=== PATIENT | male | born 1960 | race Asian ===

== ENCOUNTER 2019-07-31 11:50 | Inpatient (IN) | payer MEDICAID ==
[~2019-07-31] VITALS: Ht 172.7 cm; Wt 50.8 kg
[2019-07-31 11:58] VITALS: Ht 172.7 cm; Wt 50.8 kg
--- NOTE | 2019-07-31 12:07 | NUR ---
AMBULATORY TO BED 9. PT C/O L 4TH TOE PAIN. PT STATES HE WAS WORKING ON HIS CAR 5 DAYS AGO, HE FELL AND INJURED HIS L 4TH TOE. PT STATES HE HAS BEEN CLEANING HIS TOE WITH PEROXIDE, CAME TO ER ER TODAY BECAUSE "IT SMELLS". ON ARRIVAL, L FOOT RED AND SWOLLEN, L 4TH TOE BLACK WITH OPEN WOUND ON TOP, WITH THICK YELLOW SLOUGH AND DISCHARGE, STRONG ODOR NOTED. RED STREAK ALSO NOTED GOING UP TO L LEG.
--- NOTE | 2019-07-31 12:14 | NUR ---
XRAY AT BEDSIDE.
[2019-07-31 12:55] LABS: BASOPHIL % 0.5 % (0-2); PLATELET COUNT 315 x10^3mcL (130-400); RED CELL DISTRIBUTION WIDTH 13.1 % (11.5-14.5)
[2019-07-31 13:28] LABS: CALCIUM 8.2 mg/dL (8.5-10.1); CARBON DIOXIDE 27.2 mmol/L (21-32); CHLORIDE SERUM 96 mmol/L (98-107); CREATININE SERUM 1.3 mg/dL (0.7-1.3); GFR1 60 mL/min; GLUCOSE SERUM 444 mg/dL (74-106); SODIUM SERUM 133 mmol/L (136-145)
[2019-07-31 13:33] LABS: ALBUMIN 3.5 g/dL (3.4-5.0); ALKALINE PHOSPHATASE 178 U/L (46-116); ALT/SGPT 20 U/L (16-63); AST/SGOT 16 U/L (15-37); BILIRUBIN TOTAL 0.3 mg/dL (0.20-1.00)
[2019-07-31 13:34] LABS: TOTAL PROTEIN, SERUM 8.3 g/dL (6.4-8.2)
--- NOTE | 2019-07-31 14:24 | NUR ---
2ND BOLUS OF NS INFUSING AT THIS TIME. PT AWAKW ALERT, NO SIGNS OF ACUTE DISTRESS.
--- NOTE | 2019-07-31 15:32 | NUR ---
2ND NS BOLUS INFUSED. BP 161/93
--- NOTE | 2019-07-31 15:50 | NUR ---
PT ADMITTED TO MS, REPORT GIVEN TO PHI.
[2019-07-31 16:28] LABS: FREE T4 1.08 ng/dL (0.76-1.46); FREE THYROXINE INDEX 2.7 ug/dL (1.4-4.5); T4(THYROXINE) 7.3 ug/dL (4.7-13.3)
[2019-07-31 16:29] VITALS: BP 182/102
[2019-07-31 16:29] LABS: T3 TOTAL 0.71 ng/mL
--- NOTE | 2019-07-31 16:43 | NUR ---
RECEIVED PT FROM ER, PT ADMIT FOR NEW ONSET DM, LEFT FOOT CELLULITIS, PT IS A/O X4, VERBAL RESPONSIVE, ABLE TO TELL WHAT HE NEEDS, LUNG SOUND CLEAR BILATERAL, NO COUGH, NO SOB, PT DENY ANY CHEST PAIN OR DISCOMFORT, BOWEL SOUND PRESENT ALL 4 QUADRANTS, NO DISTENTION, NO TENDER. PEDAL PULSE PRESENT BOTH FEET, LEFT THIRD TOE NECROTIC TISSUE SURROUND WITH ERYTHEMA. YELLOW DRAINAGE AT TOP TO THIRD TOE, ALSO THERE IS A SWELLING AND ERYTHEMA AT LEFT OUT LATERAL BIG TOE. DUE TO GOUT, IV AT LEFT AC, NO LEAKING, NO INFILTRATION. ALL ADLS ASSIST, ALL NEED MET, CALL LIGHT IN REACH, WILL CONTINUET TO MONITOR.
--- NOTE | 2019-07-31 16:51 | NUR ---
ASSUMED REPORT AND CARE FORM RESOURCE RN VINAYAK, PT IN BED, IN NO ACUTE DISTRESS, WOUDN CARE DONE, TOLERATED WELL, REPORTED NO PAIN AT THIS TIME, EKG DONE AT BEDSIDE, EDUCATION R/T DIABETIC, DIET AND HYPERTENSION GIVEN PT, VERBALLY UNDERSTANDING, NO FURTHER CONCERNS NEEDED WHEN ASKED, MEDSURG, ALL NEEDS ADDRESSED AT THIS TIME, SAFETY PROTOCOL FOLLOWED, CONTINUE TO MONITOR
--- NOTE | 2019-07-31 17:32 | NUR ---
PT HAD US TO (L) TOE AND BLOOD DRAW AT BEDSIDE, IN NO ACUTE DISTRESS, CONTINUE TO MONITOR
[2019-07-31 17:45] LABS: CHOLESTEROL 157 mg/dL (<200); MAGNESIUM 2.2 mg/dL (1.8-2.4); PHOSPHOROUS 3.1 mg/dL (2.5-4.9)
[2019-07-31 17:50] LABS: CHOLESTEROL/HDL RATIO 4.8; HDL CHOLESTEROL 33 mg/dL (40-60); TRIGLYCERIDES 469 mg/dL (<150)
--- NOTE | 2019-07-31 19:05 | NUR ---
REPORT RECEIVED FROM DAY SHIFT RN. PATIENT WAS SEEN AND IS RESTINF COMFORTABLY IN BED. NO DISTRESS NOTED. BREATHING EVEN AND UNLABORED ON ROOM AIR. NO SOB OR RESP DISTRESS NOTED. IV TO THE LAC. SALINE LOCK. PATENT AND INTACT. NO REDNESS OR SWELLING NOTED. DENIES CHEST PAIN/PRESSURE. C/O 6/10 PAIN IN LEFT TOE. WILL MEDICATE. LEFT 4TH NECROTIC TOE WITH GAUZE IN PLACE. DEYANIRA. FOUL ODOR NOTED. COMFORT AND SAFETY MEASURES IN PLACE. BED IS LOCKED AND IN THE LOWEST POSITION. SIDE RAILS UP X2. CALL LIGHT IS WITHIN REACH. WILL CONTINUE TO MONITOR.
--- NOTE | 2019-07-31 19:16 | NUR ---
EVENING SITTER, DAY, IN TO SEE PATIENT AND EXPLAINING SURGICAL PROCEDURE. ALSO CLEANING AND DRESSING WOUND. EDUCATED PATIENT ON NPO STATUS AFTER MIDNIGHT DUE TO SURGERY TOMORROW. PATIENT VERBALIZED UNDERSTANDING. PRN NORCO GIVEN FOR LEFT 4TH TOE SHARP AND THROBBING PAIN. MEDICATION EDUCATION GIVEN. NO DISTRESS NOTED. BREATHING EVEN. SAFETY MEASURES IN PLACE. CALL LIGHT IS WITHIN REACH. WILL CONTINUE TO MONITOR.
[2019-07-31 21:01] VITALS: BP 157/97
--- NOTE | 2019-07-31 21:46 | NUR ---
BS 367. ADMINISTED 12 UNITS OF REGULAR INSULIN OER DR YI'S ORDERS SINCE PATIENT WILL BE NPO AFTER MIDNIGHT. EDUCATED PATIENT ON SLIDING SCALE, HOW TO CHECK BS, HOW TO ADMINISTER INSULIN, INSULIN EDUCATION, DM EDUCATION, AND S/S OF HYPOGLYCEMIA. PATIENT VERBALIZED UNDERSTANDING AND IS AWARE TO REPORT S/S OF HYPOGLYCEMIA. DIABETIC EDUCATION PAPERWORK GIVEN. NO DISTRESS NOTED. BREATHING EVEN. SAFETY MEASURES IN PLACE. CALL LIGHT IS WITHIN REACH. WILL CONTINUE TO MONITOR.
--- NOTE | 2019-07-31 22:15 | NUR ---
AND DAUGHTER AT BEDSIDE. C/O 5/10 PAIN IN LEFT FOOT. ADMINISTERED PRN MORPHINE PRESCRIBED. MED EDUCATION GIVEN. NO DISTRESS NOTED. BREATHING EVEN AND UNLABORED ON ROOM AIR. SAFETY MEASURES IN PLACE. CALL LIGHT IS WITHIN REACH. WILL CONTINUE TO MONITOR.
[2019-08-01] VITALS (7 sets, daily range): BP systolic 110–167; BP diastolic 64–92
--- NOTE | 2019-08-01 01:47 | NUR ---
RESTING IN BED WITH EYES CLOSED. NO DISTRESS NOTED. BREATHING EVEN AND UNLABORED ON ROOM AIR. NO SOB OR RESP DISTRESS NOTED. IVF INFUSING WELL. PATENT AND INTACT. NO REDNESS OR SWELLING NOTED. SAFETY MEASURES IN PLACE. CALL LIGHT IS WITHIN REACH. WILL CONTINUE TO MONITOR.
--- NOTE | 2019-08-01 03:47 | NUR ---
RESTING IN BED WITH EEYS CLOSED ON RIGHT SIDE. NO DISTRESS NOTED. BREATHING EVEN AND UNLABORED ON ROOM AIR. NO SOB OR S/S OF PAIN NOTED. IVF INFUSING WELL. PATENT AND INTACT. LEFT FOOT DRESSING IN PLACE, CDI. SAFETY MEASURES IN PLACE. CALL LIGHT IS WITHIN REACH. WILL CONTINUE TO MONITOR.
--- NOTE | 2019-08-01 04:58 | NUR ---
PAGE GATED DR ROJASED ABOUT ORDERS FOR CHG WIPES. AWAITING ORDERS.
--- NOTE | 2019-08-01 06:02 | NUR ---
BS 174. NPO. DR YI NOTIFIED. PER HIM, NO INSULIN GIVEN AT THIS TIME.
[2019-08-01 06:29] LABS: BASOPHIL % 0.2 % (0-2); PLATELET COUNT 295 x10^3mcL (130-400); RED CELL DISTRIBUTION WIDTH 12.8 % (11.5-14.5)
--- NOTE | 2019-08-01 06:30 | NUR ---
RESTED IN LONG INTERVALS THROUGHOUT THE NIGHT. NO ACUTE CHANGES NOTED. BREATHING EVEN AND UNLABORED ON ROOM AIR. DENIES PAIN AT THIS TIME. DENIES CHEST PAIN. IV TO THE LAC INFUSING WELL. PATENT AND INTACT. DRESSING TO LEFT FOOT, CDI. MINIMAL DRAINAGE NOTED TO DRESSING. NPO. COMFORT AND SAFETY MEASURES IN PLACE. CALL LIGHT IS WITHIN REACH. WILL ENDORSE CARE TO ONCOMING RN.
[2019-08-01 06:43] LABS: CALCIUM 7.9 mg/dL (8.5-10.1); CARBON DIOXIDE 27.2 mmol/L (21-32); CHLORIDE SERUM 105 mmol/L (98-107); GFR1 > 60 mL/min; GLUCOSE SERUM 167 mg/dL (74-106); PHOSPHOROUS 3.2 mg/dL (2.5-4.9); POTASSIUM SERUM 3.7 mmol/L (3.5-5.1); SODIUM SERUM 142 mmol/L (136-145)
--- NOTE | 2019-08-01 07:57 | NUR ---
RECEIVED PT LYING IN BED A/A. RESPIRATIONS EQUAL/ UNLABORED ON RA. BP 167/92. DR. COX PAGED. PT IN NO APPARENT DISTRESS. BED IN LOW POSITION, CALL LIGHT IN REACH. WILL CONTINUE TO MONITOR
[2019-08-01 09:31] LABS: UA SPECIFIC GRAVITY 1.015 (1.005-1.035); microscopic required? YES; urine erythrocyte NEGATIVE (NEGATIVE)
[2019-08-01 09:45] LABS: AMPHETAMINE QUAL UR NONE DETECTED (See below)
--- NOTE | 2019-08-01 12:27 | NUR ---
PT WENT DOWN TO OR. NO ACUTE DISTRESS. VSS
--- NOTE | 2019-08-01 13:47 | NUR ---
Discount pharmacy card and list to low cost medical clinics given to patient by Dorota.
--- NOTE | 2019-08-01 14:30 | NUR ---
PT RETURNED TO FLOOR FROM OR, A/A/ SLIGHTLY DROWSY. VSS RESPIRATIONS EQUAL/ UNLABORED ON RA. NO C/O PAIN AT THIS TIME. L. FOOT WRAPPED WITH SUGICAL DRESSING AND ARABELLA WRAP. CDI. LLE ELEVATED WITH PILLOW. PATIENT REPORTS SENSATION/ ABLE TO WIGGLE TOES OF LLE. ICE PACK APPLIED UNDER L. KNEE ORDERED. POST OP SHOE GIVEN FOR L. FOOT. IV INFUSING. NO REDNESS/ SWELLING AT IV SITE. BED IN LOW POSITION, CALL LIGHT IN REACH. WILL CONTINUE TO MONITOR
--- NOTE | 2019-08-01 18:52 | NUR ---
PT LYING IN BED A/A. RESPIRATIONS EQUAL/UNLABORED ON RA. IVF RUNNING AT 70ML/HR. NO REDNESS/SWELLING AT IV SITE. PT L.FOOT ELEVATED ON PILLOWS. L.FOOT DRESSING CDI. NO C/O PAIN AT THIS TIME. BED IN LOW POSITION, CALL LIGHT IN REACH. WILL ENDORSE TO ON COMING NURSE
--- NOTE | 2019-08-01 20:36 | NUR ---
PT CURRENTLY RESTING IN BED, NO ACUTE DISTRESS. A/O X4. NO TELE, MED/SURG. DENIES CHEST PAIN. PULSES PALPABLE IN ALL EXTREMITIES, TRACE LLE EDEMA NOTED. LUNG SOUNDS CTA BILATERALLY, DENIES SOB. BOWEL SOUNDS ACTIVE, LAST BM 08/01/19. VOIDING WELL. AMBULATORY. S/P LEFT 4TH TOE AMPUTATION, DRESSING CDI. C/O LEFT FOOT PAIN 04/21, WILL MEDICATE PER EMAR. IV PATENT AND INTACT. BED IN LOWEST POSITION, SIDE RAILS UP X2, CALL LIGHT WITHIN REACH. WILL CONTINUE TO MONITOR.
--- NOTE | 2019-08-02 00:38 | NUR ---
PT CURRENTLY RESTING IN BED, NO ACUTE DISTRESS. WILL CONTINUE TO MONITOR.
[2019-08-02 04:26] VITALS: BP 127/81
--- NOTE | 2019-08-02 06:33 | NUR ---
PT SLEPT PERIODICALLY THROUGHOUT NIGHT, NO ACUTE DISTRESS. ALL NEEDS MET AND ATTENDED TO. NO SIGNIFICANT CHANGES. IV PATENT AND INTACT. MEDICATED PAIN PER EMAR. ICE PACK PLACED UNDER LLE. BED IN LOWEST POSITION, SIDE RAILS UP X2, CALL LIGHT WITHIN REACH. WILL ENDORSE CARE TO ONCOMING NURSE.
[2019-08-02 06:47] LABS: BASOPHIL % 0.1 % (0-2); PLATELET COUNT 295 x10^3mcL (130-400); RED CELL DISTRIBUTION WIDTH 13.2 % (11.5-14.5)
[2019-08-02 07:00] LABS: CALCIUM 7.8 mg/dL (8.5-10.1); CARBON DIOXIDE 24.1 mmol/L (21-32); CHLORIDE SERUM 103 mmol/L (98-107); CREATININE SERUM 1.1 mg/dL (0.7-1.3); GFR1 > 60 mL/min; GLUCOSE SERUM 218 mg/dL (74-106); MAGNESIUM 1.8 mg/dL (1.8-2.4); PHOSPHOROUS 2.9 mg/dL (2.5-4.9); POTASSIUM SERUM 4.5 mmol/L (3.5-5.1); SODIUM SERUM 139 mmol/L (136-145)
--- NOTE | 2019-08-02 07:48 | NUR ---
RECEIVED PT LYING IN BED A/A. RESPIRATIONS EQUAL/ UNLABORED ON RA. IVF RUNNING AT 70ML/HR. PT C/O L. FOOT PAIN 02/19, TOLERABLE AT THIS TIME. L. FOOT BANDAGE CDI. CSM TO L. FOOT INTACT. BED IN LOW POSITION, CALL LIGHT IN REACH, WILL CONTINUE TO MONITOR
[2019-08-02 08:32] VITALS: BP 156/92
--- NOTE | 2019-08-02 12:46 | NUR ---
PT SITTING IN BED A/A. RESPIRATIONS EQUAL/ UNLABORED ON RA. NO ACUTE DISTRESS/ C/O PAIN AT THIS TIME. IVF RUNNING AT 70ML/HR. BED IN LOW POSITION, CALL LIGHT IN REACH, WILL CONTINUE TO MONITOR
--- NOTE | 2019-08-02 15:37 | NUR ---
PT LYING IN BED EYES CLOSED, AROUSABLE TO VOICE. BREATHING EQUAL/ UNLABORED ON RA. IVF RUNNING AT 100ML/HR. NO SIGNS OF DISTRESS. BED IN LOW POSITION, CALL LIGHT IN REACH, WILL CONTINUE TO MONITOR.
[2019-08-02 16:47] VITALS: BP 134/80
--- NOTE | 2019-08-02 18:41 | NUR ---
PT SITTING IN BED A/A. RESPIRATIONS EQUAL/ UNLABORED ON RA. IVF RUNNING AT 70ML/HR. NO REDNESS/ SWELLING AT IV SITE. L. FOOT ELEVATED, NEW ICE PACK UNDER L. KNEE, L. FOOT BANDAGE CDI. NO C/O PAIN AT THIS TIME. EDUCATED ON TYPE 2 DIABETES. BED IN LOW POSITION, CALL LIGHT IN REACH. WILL ENDORSE TO ON COMING SHIFT
[2019-08-02 19:27] VITALS: BP 145/87
--- NOTE | 2019-08-02 19:28 | NUR ---
AWAKE AND ALERT, HOB ELEVATED 45 DEG. WATCHING TV. BREATHING EVEN AND UNLABORED ON ROOM AIR. IVF OF NS INFUSING WELL TO IV SITE TO LEFT AC. IV SITE FREE FROM ERYTHEMA OR SWELLING. DRESSING TO LEFT FOOT CDI. CAPILLARY REFILL < 2 SECS.
--- NOTE | 2019-08-02 22:45 | NUR ---
eyes closed, breathing even and unlabored on room air. call light within easy reach. ivf infusing well. left foot elevated on pillows.
[2019-08-03 05:24] VITALS: BP 173/93
--- NOTE | 2019-08-03 06:05 | NUR ---
bp 168/93, pr 81. informed maggy madrid to administer due lisinopril this am
[2019-08-03 06:24] LABS: BASOPHIL % 0.6 % (0-2); PLATELET COUNT 282 x10^3mcL (130-400); RED CELL DISTRIBUTION WIDTH 13.5 % (11.5-14.5)
[2019-08-03 06:59] VITALS: BP 150/87
--- NOTE | 2019-08-03 07:12 | NUR ---
EYES CLOSED, BREATHING EVEN AND UNLABORED. IVF INFUSING WELL. IN NO ACUTE DISTRESS. ENDORSED TO NURSE BRIAN
[2019-08-03 07:14] LABS: CALCIUM 8.5 mg/dL (8.5-10.1); CARBON DIOXIDE 28.5 mmol/L (21-32); CHLORIDE SERUM 105 mmol/L (98-107); GFR1 > 60 mL/min; GLUCOSE SERUM 117 mg/dL (74-106); SODIUM SERUM 142 mmol/L (136-145)
--- NOTE | 2019-08-03 07:29 | NUR ---
PT LYING IN BED EYES CLOSED, AROUSABLE TO VOICE. RESPIRATIONS EQUAL/ UNLABORED ON RA. IVF RUNNING AT 70ML/HR. NO REDNESS SWELLING AT IV SITE. L. FOOT BANDAGE CDI/ L. FOOT ELEVATED. BED IN LOW POSITION, CALL LIGHT IN REACH, WILL CONTINUE TO MONITOR
[2019-08-03 08:05] VITALS: BP 152/90
--- NOTE | 2019-08-03 11:52 | NUR ---
PT LYING IN BED A/A. RESPIRATIONS EQUAL/UNLABORED ON RA. L. FOOT ELEVATED, CSM INTACT, BANDAGE CDI. NO CO PAIN. IVF RUNNING AT 70ML/HR. NO REDNESS/ SWELLING AT IV SITE. BED IN LOW POSITION, CALL LIGHT IN REACH. WILL CONTINUE TO MONITOR
--- NOTE | 2019-08-03 14:08 | NUR ---
Initial Nutrition Assessment: Bridgette Tuan eLv [id number] Dx: new onset DM, left foot cellulitis PMHx: Gout PSHx: None Labs:(08/03) WBC:11..3H, H/H:12.4/37L(07/31) A1c:11.8H Meds: Amaryl, Colace, Glucophage, Humulin, Morphine, [place], NS IV, Tyleno, Vancocin, Zestril, Zofran, Zyloprin Diet: CCHO PO Intake: (08/01) L:100% D:100% (08/02) B"100% (08/03) B:95% Ht:68in, 5'8" Wt:111#, 50.802kg BMI:17kg/m2 (underweight) Bed scale: IBW:154#, 70kg %IBW:72% UBW: 125# 1 year ago Age: 58 y/o male Food Allergies: NKFA Skin:s/p left 4th toe amputation Santiago: 21 Edema: none GI: active bowel sounds Last BM:08/01 Per H&P, pt was admitted with c/o pain on the the left 4th toe. Per progress note 08/02, pt is s/p left 4th toe amputation. During visit, pt was seen laying in bed. RD went over in depth diabetic diet, labs and medications. RD went over CHO sources, portion control, adding fiber and protein when eating CHO to stabalize BG. Pt inquiring on ways to gain weight. RD gave snack examples and supplement choices. RD provided pt wit h handout for diabetes class and encouraged pt to go. Pt verbalized understanding. Problem with: N/V/D/C: No Problems with: Chewing/Swallowing: No Current appetite: good Recent wt change:-14# within the past year %wt change:11.2% wt change (significant) Vitamin/Supplement use: One a Day Men's MVI Special diet at home: Regualr Physical activity:walking/running 30min/day after work and pushups Nutrition education given: Medical Nutrition Therapy: Type 2 diabetes. Food-drug interactions? [place] Education given?yes, can get constipation Estimated Nutritional Needs Based on ideal body weight 70kg due to underweight status Energy: 1750-2100kcal/d (25-30kcal/kg) Protein:70-84g/d (1-1.2g/kg) Fluid: 1750-2100ml/d (1 ml/kcal) or per doctor Nutrition Diagnosis 1. Underweight related to poor appettite as evidenced by BMI:17kg/m2 and 72% of IBW. 2. Altered nutrition related labs related to endocrine dysfunction as evidenced by A1c:11.8. 3. Nutrition related knowledge deficit related to new DM diagnosis and evidenced by pt uable to name CHO sources. Intervention 1. Recommend continue CCHO diet. 2. Recommend pt attend outpatient diabetes class due to newly diagnosed with diabetes. Monitor/Evaluate Goal: PO intake at least 75% of estimated needs Monitor: PO intake, Labs, GI function F/U in 7 days as low risk:08/10
--- NOTE | 2019-08-03 14:14 | NUR ---
1.Recommend continue [facility] diet. 2.Recommend pt attend outpatient diabetes class due to newly diagnosed with diabetes.
--- NOTE | 2019-08-03 16:09 | NUR ---
SPOKE WITH DR. BINGHAM OVER THE PHONE REGARDING PT WOUND CULTURE RESULTS. ALSO CLARIFIED WOUND CARE DRESSING INSTRUCTIONS, PER DR. BINGHAM SHE WILL SEE PT TOMORROW IN AM AND DRESSING CHANGE WILL BE DONE AT F/U APPT
--- NOTE | 2019-08-03 16:40 | NUR ---
PT SITTING IN BED A/A. BREATHING EQUAL/ UNLABORED ON RA. L. FOOT ELEVATED, DRESSING CDI, CSM INTACT. IVF RUNNING AT 70ML/HR. NO REDNESS/ SWELLING AT IV SITE. BED IN LOW POSITION, CALL LIGHT IN REACH, WILL CONTINUE TO MONITOR
--- NOTE | 2019-08-03 17:55 | NUR ---
PAGED DR. GARCIA ABOUT BP. PT NON SYMPTOMATIC
[2019-08-03 17:56] VITALS: BP 163/90
--- NOTE | 2019-08-03 18:30 | NUR ---
PT SITTING IN BED A/A. BREATHING EQUAL UNLABORED ON RA. NO C/O PAIN AT THIS TIME. L. FOOT BANDAGE CDI/ CSM INTACT. IVF RUNNING AT 70 ML/HR. NO REDNESS/SWELLING AT IV SITE. BED IN LOW POSITION, CALL LIGHT IN REACH, FAMILY AT BED SIDE. WILL ENDORSE TO ON COMING NURSE
--- NOTE | 2019-08-03 18:50 | NUR ---
PAGED DR. ELY REGARGING BP
[2019-08-03 19:30] VITALS: BP 194/109
--- NOTE | 2019-08-03 19:49 | NUR ---
AWAKE AND ALERT, ORIENTED TO NAME, PLACE, TIME AND SITUATION. SPEECH CLEAR AND APPROPRIATE. HOB ELEVATED 30 DEG. IVF INFUSING WELL TO LEFT AC, IV SITE FREE FROM ERYTHEMA OR SWELLING. REMINDED TO KEEP LEFT FOOT ELEVATED ON PILLOW. BP 198/109, INFORMED DR. ELY.
[2019-08-03 21:13] VITALS: BP 155/75
--- NOTE | 2019-08-03 22:55 | NUR ---
eyes closed, breathing even and unlabored on room air. call light within easy reach. left foot elevated on pillow
[2019-08-04 05:04] VITALS: BP 158/99
--- NOTE | 2019-08-04 06:31 | NUR ---
EYES CLOSED, BREATHING EVEN AND UNLABORED ON ROOM AIR. NO MOANING OR GRIMACING NOTED. LEFT FOOT ELEVATED ON PILLOW. IVF INFUSING WELL. IV SITE FREE FROM ERYTHEMA OR SWELLING.
--- NOTE | 2019-08-04 07:10 | NUR ---
RECEIVED REPORT FROM NIELS CHENEY, PT IN BED IN NO ACUTE DISTRESS
--- NOTE | 2019-08-04 07:19 | NUR ---
AWAKE AND ALERT, BREATHING EVEN AND UNLABORED. IN NO ACUTE DISTRESS. ENDORSED TO NURSE THI
--- NOTE | 2019-08-04 07:25 | NUR ---
PT IN BED, VERBAL, IN NO ACUTE DISTRESS, ABLE TO MAKE NEEDS KNOWN, CALM AT THIS TIME, PERRLA, NO REDNESS/DRAINAGE, NO FACIAL DROOP/SLURRED SPEECH, RESP EVEN, NO SOB/COUGH, CHEST RISE SYMMETRICALLY, MEDSURG, DENIED CP/QUISPE/PALPITATION, DENIED N/V/D, ABD FLAT AND NON-TENDER TO TOUCH, BS ACTIVE X 4, PALP PULSES, CAP REFILL < 3S, AMBULATORY, NON-WEIGHT BEARING TO LE, CONTINENT, IV PATENT AND INFUSING WELL, DRESSING CDI, SKIN C/D/W, SEE SKIN ASSESSMENT, DENIED PAIN/DISCOMFORT, ALL NEEDS ADDRESSED AT THIS TIME, SAFETY MONITOR, CONTINUE TO MONITOR
[2019-08-04 07:51] LABS: CALCIUM 8.5 mg/dL (8.5-10.1); CARBON DIOXIDE 28.7 mmol/L (21-32); CHLORIDE SERUM 104 mmol/L (98-107); CREATININE SERUM 1.1 mg/dL (0.7-1.3); GFR1 > 60 mL/min; GLUCOSE SERUM 117 mg/dL (74-106); POTASSIUM SERUM 3.4 mmol/L (3.5-5.1); SODIUM SERUM 142 mmol/L (136-145)
[2019-08-04 07:55] LABS: PLATELET COUNT 290 x10^3mcL (130-400); RED CELL DISTRIBUTION WIDTH 13.5 % (11.5-14.5)
[2019-08-04 08:11] VITALS: BP 180/100
--- NOTE | 2019-08-04 08:12 | NUR ---
PT SEEN BY PODIATRIC DR BINGHAM, DRESSIGN CHANGED BY DR BINGHAM, TOLRATED WELL, CONTINUE TO MONITOR
--- NOTE | 2019-08-04 09:55 | NUR ---
AM MEDGIVEN PER EMAR, TAKEN WELL, NO ASE NOTED AT THIS TIME, EDUCATION R/T MED, ASE AND CONDITION GIVEN TO PT, VERBALLY UNDERSANDING, CONTINUE TO MONITOR
[2019-08-04 10:47] VITALS: BP 180/100
--- NOTE | 2019-08-04 11:16 | NUR ---
SEEN BY DR LOPEZ AND BROOKE R/T DC HOME TODAY, WOUND PIC TAKEN AND KEPT IN CHART
[2019-08-04] MEDS ORDERED: ZES20 PO (11:37)
[2019-08-04] MEDS ORDERED: GLU500 PO (11:38)
[2019-08-04] MEDS ORDERED: ALLOPURINOL300 M1 PO (11:38)
[2019-08-04] MEDS ORDERED: GLIMEPIRIDE2 M1 PO (11:38)
[2019-08-04] MEDS ORDERED: BACTRIM DS1 TAB PO (11:39)
[2019-08-04] MEDS ORDERED: AUG500 PO (11:40)
--- NOTE | 2019-08-04 12:01 | NUR ---
PT MADE AWARE OF NEW PRESCRIPTION IN DC PACKAGE, SAID WILL F/U WITH [facility], SON AT BEDSIDE SAID WILL DRIVE PT TO PHARMACY TO P/U MED
--- NOTE | 2019-08-04 12:09 | NUR ---
DC PAPER SIGNED BY PT AND KEPT IN CHART, EDUCATION R/T DM, HTN, MED, ASE, BS CHECK AND MONITOR GIVEN TO PT AND SON AT BEDSIDE, VERBALLY UNDERSTANDING, QUESTIONS ASKED AND ANSWERED, NO FURTHER CONCERNS NEEDED AT THIS TIME, IV REMOVED, IV CATH TIP INTACT, NO ACTIVE BLEEDING NOTED, PT AWAITED FOR SS AND ENFORCEMENT OFFICER TO GIVE MD NOTE FOR HOSPITALIZATION, PT MADE AWARE OF PT RESPONSIBILITY TO F/U WITH PODIATRIC MD APPOINMENT AND PCP [facility], WOUND CARE DRESSING SUPPLY GIVEN TO PT APPROXIMATELY 7 DAYS, ALL NEEDS ADDRESSED AT THIS TIME, PT DC HOME, SON P/U PT.
--- NOTE | 2019-08-04 14:54 | NUR ---
PHYSICAL THERAPY DAILY NOTES CO-SIGN All documentation done by the Larry Operator for 08/04/19 has been reviewed. I agree with the documentation. Reviewed/Co-Signed by: Aby Green PT Documentation Done by: ROCIO KIM PTA
== END 2019-08-04 13:38 | disposition home or self-care (01) | DRG 710 ==
LOC: ED 11:50 → MU 15:17
PROVIDERS: Emergency Medicine; Podiatrist Foot & Ankle Surgery; ADMIT Internal Medicine
PROC: 0Y6W0Z1 Detachment at Left 4th Toe, High, Open Approach (ICD-10-PCS; principal; 2019-08-01 13:00)
DX: A41.9 Sepsis, unspecified organism (principal); N17.0 Acute kidney failure with tubular necrosis; I96 Gangrene, not elsewhere classified; L03.116 Cellulitis of left lower limb; E87.1 Hypo-osmolality and hyponatremia; E11.621 Type 2 diabetes mellitus with foot ulcer; E11.69 Type 2 diabetes mellitus with other specified complication; E11.52 Type 2 diabetes mellitus with diabetic peripheral angiopathy with gangrene; L97.524 Non-pressure chronic ulcer of other part of left foot with necrosis of bone; E11.65 Type 2 diabetes mellitus with hyperglycemia; M86.9 Osteomyelitis, unspecified; B95.61 Methicillin susceptible Staphylococcus aureus infection as the cause of diseases classified elsewhere; I10 Essential (primary) hypertension; M10.9 Gout, unspecified; Z68.1 Body mass index [BMI] 19.9 or less, adult; Z79.84 Long term (current) use of oral hypoglycemic drugs
CPT/HCPCS: 82962; 84439; 94150; 97116-GP; 97530-GP; G0378; J0690; J1815; J2250; J2270; J2405; J2543; J2704; J3010; J3370; J3490; J7030; J7120; Q0092